=== PATIENT | male | born 1940 ===

== ENCOUNTER 2023-02-03 10:41 | Emergency (ER) | payer MEDICARE, BC ==
[2023-02-03] MEDS ORDERED: Propofol 200 MG/20 ML SDV IV ONE (10:42)
[2023-02-03] MEDS ORDERED: Ketorolac 30 MG/ML SDV IVPUSH ONE (10:50)
[2023-02-03] MEDS ORDERED: Ondansetron 4 MG/2 ML SDV IVPUSH ONE (10:50)
[2023-02-03] MEDS ORDERED: Morphine 4 MG/ML VIAL IVPUSH ONE (10:50)
[2023-02-03] MEDS ORDERED: Sodium Chloride 0.9% 1,000 ML IV ONE (10:50)
[2023-02-03 11:15] LABS: ESTIMATED GFR 85 mL/min (>60)
[2023-02-03] MEDS ORDERED: HYDROmorphone 2 MG/ML SDV IVPUSH ONE (11:15)
== END 2023-02-03 14:21 | disposition home or self-care (01) ==
LOC: FB.ED 10:41
DX: S43.015A Anterior dislocation of left humerus, initial encounter (principal); Z79.82 Long term (current) use of aspirin; W18.30XA Fall on same level, unspecified, initial encounter; Y93.01 Activity, walking, marching and hiking; Y92.009 Unspecified place in unspecified non-institutional (private) residence as the place of occurrence of the external cause
CPT/HCPCS: 01730; 23650; 23655; 36415; 73030-LT; 73060-LT; 80053; 84484; 85025; 86140; 93005; 93010; 96361; 96374; 96375; 99283; 99284-25; J1170; J1885; J2270; J2405; J2704; J7030